=== PATIENT | female | born 1960 | race Caucasian/White ===

== ENCOUNTER → 2016-05-17 | Outpatient (REF) | payer BC | LOC: M SFHCPLAZ 08:30 | PROVIDERS: ATTEND Family Medicine | DX: Z13.220 Encounter for screening for lipoid disorders (principal) ==

== ENCOUNTER → 2016-05-30 | Outpatient (REF) | payer BC ==
[2016-05-30 18:46] LABS: MEAN CORPUSCULAR HEMOGLOBIN 30.5 pg (27.0-33.0); MEAN CORPUSCULAR HGB CONC 33.3 g/dl (32.0-36.5); MEAN CORPUSCULAR VOLUME 91.7 fl (80.0-96.0); RED CELL DISTRIBUTION WIDTH 13.4 % (11.5-14.5); WHITE BLOOD COUNT 5.9 K/mm3 (4.0-10.0)
[2016-05-30 19:20] LABS: ALBUMIN 4.2 GM/DL (3.2-5.2); ALBUMIN/GLOBULIN RATIO 1.14 (1.00-1.93); ALKALINE PHOSPHATASE 164 U/L (45-117); ALT/SGPT 21 U/L (12-78); AMYLASE 53 U/L (25-115); ANION GAP 9 MEQ/L (8-16); AST/SGOT 19 U/L (15-37); BILIRUBIN,TOTAL 0.3 MG/DL (0.2-1.0); BLOOD UREA NITROGEN 9 MG/DL (7-18); CALCIUM LEVEL 9.1 MG/DL (8.5-10.1); CARBON DIOXIDE LEVEL 29 MEQ/L (21-32); CHLORIDE LEVEL 105 MEQ/L (98-107); CREATININE FOR GFR 0.61 MG/DL (0.55-1.02); GLOMERULAR FILTRATION RATE > 60.0 (>51); GLUCOSE, FASTING 75 MG/DL (70-105); POTASSIUM SERUM 4.1 MEQ/L (3.5-5.1); SODIUM LEVEL 143 MEQ/L (136-145); TOTAL PROTEIN 7.9 GM/DL (6.4-8.2)
== END ==
LOC: M SFHCPLAZ 15:07
PROVIDERS: ATTEND Family Medicine
DX: R10.32 Left lower quadrant pain (principal); K92.1 Melena; R63.4 Abnormal weight loss

== ENCOUNTER → 2016-05-31 | Outpatient (CLI) | payer BC ==
[~2016-05-31] MED LIST: GASTROGRAFIN SOLUTION 30ML (Q9963) As Ordered ONE; ISOVUE-370 76% 100ML VIAL (Q9967) As Ordered ONE
--- NOTE | 2016-06-01 03:49 | REP ---
Clinical: Right lower quadrant pain. Technique: Axial contrast enhanced images from the lung bases to the pubic symphysis using oral and 100 ml Isovue 370 intravenous contrast material with precontrast images of the abdomen as well as coronal and sagittal re-formations. Comparison: 12/10/2013. Findings: Lung bases clear. Visualized heart and pericardium are normal. Liver, spleen, pancreas, gallbladder, bilateral adrenal glands and kidneys are normal. The enteric system demonstrates moderate fecal stasis without evidence for obstruction or acute inflammatory process. Pelvis demonstrates normal bladder and age-appropriate uterus/adnexa. No pelvic fluid or ascites. No intraperitoneal or retroperitoneal adenopathy. Abdominal aorta and vasculature appears normal. No free air. Musculoskeletal structures are intact. Impression: Moderate fecal stasis. Otherwise, normal contrast enhanced CT of the abdomen and pelvis. No acute intra-abdominal or pelvic pathology appreciated. Signed by Quan Valera MD 06/01/2016 03:39 A
== END ==
LOC: M RAD 15:50
PROVIDERS: ATTEND Family Medicine
DX: R10.32 Left lower quadrant pain (principal)
CPT/HCPCS: 74178; Q9963; Q9967

== ENCOUNTER → 2016-06-15 | Outpatient (CLI) | payer BC ==
[2016-06-15 14:07] LABS: COMPLEMENT C3 111 MG/DL (90-180); COMPLEMENT C4 29.7 MG/DL (10-40); GLUCOSE, FASTING 81 MG/DL (70-105); URIC ACID 4.2 MG/DL (2.6-6.0)
[2016-06-15 15:53] LABS: BASO # 0.1 K/mm3 (0.0-0.2); BASO % 0.9 % (0.0-1.0); EOS # 0.1 K/mm3 (0.0-0.50); EOS % 1.9 % (0.0-3.0); LARGE UNSTAINED CELL # 0.1 K/mm3 (0.0-0.4); LARGE UNSTAINED CELL % 1.3 % (0.0-4.0); LYMPH # 1.9 K/mm3 (1.5-4.5); MEAN CORPUSCULAR HEMOGLOBIN 30.2 pg (27.0-33.0); MEAN CORPUSCULAR HGB CONC 32.3 g/dl (32.0-36.5); MEAN CORPUSCULAR VOLUME 93.3 fl (80.0-96.0); MONO # 0.4 K/mm3 (0.0-0.8); MONO % 5.6 % (0.0-5.0); NEUTROPHILS # 3.9 K/mm3 (1.8-7.7); NEUTROPHILS % 61.2 % (36.0-66.0); PLATELET COUNT, AUTOMATED 337 k/mm3 (150-450); RED CELL DISTRIBUTION WIDTH 13.9 % (11.5-14.5); WHITE BLOOD COUNT 6.4 K/mm3 (4.0-10.0)
[2016-06-15 16:17] LABS: ERYTHROCYTE SEDIMENTATION RATE 49 mm/hr (0-30)
[2016-06-20 00:06] LABS: COMPLEMENT TOTAL (CH50) > 63 U/mL (42-60); T PALLIDUM AB (FTA-AB) Non Reactive (Non Reactive)
[2016-06-21 07:15] LABS: HLA TYPING (23A-49B +8C LOCUS) SEE SEPARATE REPORT
== END ==
LOC: M LAB 12:54
PROVIDERS: ATTEND Ophthalmology
DX: H15.001 Unspecified scleritis, right eye (principal)

== ENCOUNTER → 2016-06-19 | Outpatient (CLI) | payer BC ==
--- NOTE | 2016-06-19 14:01 | REPMRS ---
Patient History The patient states she has not had a clinical breast exam in over a year. Patient is postmenopausal. Family history of breast cancer in sister under age 50. Benign excisional biopsy of the left breast, 1989. Digital Woman Screen Mammo: June 19, 2016 - Exam #: [id number] Bilateral CC and MLO view(s) were taken. Technologist: Cecy Cortez, Technologist Prior study comparison: April 25, 2013, digital woman screen mammo performed at [facility]. FINDINGS: The breast tissue is extremely dense which could obscure a lesion on mammography. There is no evidence of cancer on this mammogram. ASSESSMENT: BI-RADS/ACR category 2 mammogram. Benign finding(s). Given the dense breast parenchyma and family history, recommend MRI of the breasts to exclude occult lesion. Recommendation Routine screening mammogram of both breasts in 1 year (for women over age 40). This mammogram was interpreted with the aid of an FDA-approved computer-aided dectection system. Electronically Signed By: Wojciech Ocampo MD 06/19/16 1400
--- NOTE | 2016-06-21 07:58 | DEXA ---
AP SPINE L1 - L4 1.027 -1.4 0.0 LT FEMUR TOTAL 0.918 -0.7 0.4 RT FEMUR TOTAL 0.981 -0.2 0.9 TOTAL BODY TOTAL OTHER DUAL FEMUR FRAX* ASSESSMENT Risk factors: Current smoker. 10 year probability of fracture Major osteoporotic fracture 6.0 % Hip fracture 0.6 % COMMENTS: Normal bone densitometry of the right hip. There is low bone density of the spine. There is low bone density of the left hip. The density of the spine is decreased 2.9% since 04/2013. The density of the left hip has decreased 8.7% since 04/2013. The density of the right hip has decreased 1.6% since 04/2013. The decreased density of the spine does represent a significant change. The decreased density of the left hip does represent a significant change. The decreased density of the right hip does not represent a significant change. FOLLOW-UP: Recommendation for the next bone density exam: 2 years. HERNAN
== END ==
LOC: M WHC 12:46
PROVIDERS: ATTEND Family Medicine
DX: Z12.31 Encounter for screening mammogram for malignant neoplasm of breast (principal); M85.80 Other specified disorders of bone density and structure, unspecified site; Z78.0 Asymptomatic menopausal state
CPT/HCPCS: 77080; G0202

== ENCOUNTER → 2016-07-04 | Outpatient (REF) | payer BC | LOC: M SFHCPLAZ 15:34 | PROVIDERS: ATTEND Family Medicine | DX: Z12.4 Encounter for screening for malignant neoplasm of cervix (principal); R87.610 Atypical squamous cells of undetermined significance on cytologic smear of cervix (ASC-US) ==

== ENCOUNTER 2019-02-10 17:51 | Emergency (ER) | payer OTHER, BC ==
[~2019-02-10] VITALS: Ht 162.6 cm; Wt 59.3 kg
[2019-02-10 17:52] VITALS: BP 150/76
--- NOTE | 2019-02-10 18:30 | REP ---
Right wrist series: Four views. History: Right wrist injury. Findings: Four views of the right wrist demonstrate normal bones, joints and soft tissues. No fracture or subluxation is seen. Impression: Negative right wrist radiographs. Electronically Signed by Taye Gan MD 02/10/2019 06:22 P
[2019-02-10] MEDS ORDERED: IBUPROFEN 600 MG TAB PO ONE (19:15)
[2019-02-10] MEDS ORDERED: ACETAMINOPHEN 325 MG TAB PO ONE (19:15)
== END 2019-02-10 20:05 | disposition home or self-care (01) ==
LOC: M ED 17:51
DX: S63.501A Unspecified sprain of right wrist, initial encounter (principal); W22.8XXA Striking against or struck by other objects, initial encounter; Y92.89 Other specified places as the place of occurrence of the external cause

== ENCOUNTER 2022-05-23 11:21 | Inpatient (IN) | payer BC, MEDICAID, OTHER, SELFPAY ==
[~2022-05-23] VITALS: Ht 162.6 cm; Wt 55.0 kg
[2022-05-23 12:28] LABS: BASO % 0.4 % (0.0-1.0); HEMOGLOBIN 13.8 g/dl (12.0-15.5); LYMPH # 0.7 10^3/uL (1.5-5.0); MEAN CORPUSCULAR HEMOGLOBIN 31.9 pg (27.0-33.0); MEAN CORPUSCULAR HGB CONC 33.7 g/dl (32.0-36.5); MEAN CORPUSCULAR VOLUME 94.9 fl (80.0-96.0); MONO # 0.3 10^3/uL (0.0-0.8); MONO % 11.5 % (2.0-8.0); NEUTROPHILS # 1.6 10^3/uL (1.5-8.5); NEUTROPHILS % 60.7 % (36.0-66.0); PLATELET COUNT, AUTOMATED 150 10^3/uL (150-450); RED BLOOD COUNT 4.32 10^6/uL (4.00-5.40); WHITE BLOOD COUNT 2.7 10^3/uL (4.0-10.0)
[2022-05-23 12:45] LABS: BLOOD UREA NITROGEN 14 MG/DL (9-23); CALCIUM LEVEL 7.9 MG/DL (8.3-10.6); CARBON DIOXIDE LEVEL 24 MMOL/L (20-31); CHLORIDE LEVEL 100 MMOL/L (98-107); CREATININE FOR GFR 0.67 MG/DL (0.55-1.30); GLOMERULAR FILTRATION RATE > 60.0 (>45); GLUCOSE, FASTING 100 MG/DL (74-106); POTASSIUM SERUM 4.4 MMOL/L (3.5-5.1); SODIUM LEVEL 135 MMOL/L (136-145)
[2022-05-23] MEDS ORDERED: IPRATROPIUM 0.5MG/ALBUTEROL 2.5MG INH SOL UD 3ML (DUONEB) NEB ONE (17:00)
[2022-05-23] MEDS ORDERED: LR IV SCH (18:05)
[2022-05-23] MEDS ORDERED: D5 IV SCH (18:05)
[2022-05-23] MEDS ORDERED: LIDOCAINE 5% (LIDODERM) PATCH TD ONE (18:10)
[2022-05-23] MEDS ORDERED: IBUPROFEN 400MG TAB PO PRN (18:10)
[2022-05-23] MEDS: ACETAMINOPHEN 325 MG TAB PO PRN (18:37)
[2022-05-23] MEDS ORDERED: [UNRECOGNIZED DRUG - CODE] PO (18:43)
[2022-05-23] MEDS ORDERED: EXCETAB32 PO (18:43)
[2022-05-23] MEDS ORDERED: HOME MED LIST COMPLETE! XX SCH (18:45)
[2022-05-23 19:57] LABS: ALBUMIN 3.6 G/DL (3.2-5.2); ALKALINE PHOSPHATASE 99 U/L (46-116); ALT/SGPT 23 U/L (7.0-40); AST/SGOT 42 U/L (<34); BILIRUBIN,DIRECT < 0.1 MG/DL (<0.4); BILIRUBIN,TOTAL 0.3 MG/DL (0.3-1.2); TOTAL PROTEIN 7.1 G/DL (5.7-8.2)
[2022-05-23] MEDS: IPRATROPIUM 0.5MG/ALBUTEROL 2.5MG INH SOL UD 3ML (DUONEB) NEB SCH ×2 (20:00→23:13)
[2022-05-23] MEDS: OSELTAMIVIR PHOSPHATE 75 MG CAP (TAMIFLU) PO SCH (21:42)
[2022-05-23] MEDS: IBUPROFEN 800 MG TAB PO PRN (21:42)
[2022-05-24] MEDS: IPRATROPIUM 0.5MG/ALBUTEROL 2.5MG INH SOL UD 3ML (DUONEB) NEB SCH ×6 (03:18→23:21)
[2022-05-24 06:07] LABS: HEMATOCRIT 41.4 % (36.0-47.0); HEMOGLOBIN 13.6 g/dl (12.0-15.5); MEAN CORPUSCULAR HEMOGLOBIN 31.7 pg (27.0-33.0); MEAN CORPUSCULAR HGB CONC 32.9 g/dl (32.0-36.5); MEAN CORPUSCULAR VOLUME 96.5 fl (80.0-96.0); PLATELET COUNT, AUTOMATED 142 10^3/uL (150-450); RED BLOOD COUNT 4.29 10^6/uL (4.00-5.40); WHITE BLOOD COUNT 3.5 10^3/uL (4.0-10.0)
[2022-05-24 06:34] LABS: BLOOD UREA NITROGEN 20 MG/DL (9-23); CARBON DIOXIDE LEVEL 28 MMOL/L (20-31); CHLORIDE LEVEL 104 MMOL/L (98-107); CREATININE FOR GFR 0.83 MG/DL (0.55-1.30); GLOMERULAR FILTRATION RATE > 60.0 (>45); GLUCOSE, FASTING 103 MG/DL (74-106); POTASSIUM SERUM 3.9 MMOL/L (3.5-5.1); SODIUM LEVEL 141 MMOL/L (136-145)
[2022-05-24] MEDS: OSELTAMIVIR PHOSPHATE 75 MG CAP (TAMIFLU) PO SCH ×2 (07:30→20:30)
[2022-05-24] MEDS: ENOXAPARIN 30MG/0.3ML SYRINGE (J1650 PER 10MG) SC SCH (07:31)
[2022-05-24] MEDS: LIDOCAINE 5% (LIDODERM) PATCH TD SCH (07:31)
[2022-05-24] MEDS: IBUPROFEN 800 MG TAB PO PRN (07:37)
[2022-05-24 15:15] VITALS: BP 116/69
[2022-05-24] MEDS ORDERED: LR 1,000 ML IV ONE (15:50)
[2022-05-24] MEDS: ACETAMINOPHEN 325 MG TAB PO PRN (17:47)
[2022-05-24] MEDS: ONDANSETRON 4MG ORAL DISINTEGRATING TAB SL PRN (20:43)
[2022-05-24 22:00] VITALS: BP 117/70
[2022-05-25] MEDS: IPRATROPIUM 0.5MG/ALBUTEROL 2.5MG INH SOL UD 3ML (DUONEB) NEB SCH ×6 (04:00→23:49)
[2022-05-25] MEDS: IBUPROFEN 800 MG TAB PO PRN ×2 (05:02→12:49)
[2022-05-25] MEDS: ONDANSETRON 4MG ORAL DISINTEGRATING TAB SL PRN (05:08)
[2022-05-25 06:00] VITALS: BP 123/76
[2022-05-25 06:16] LABS: HEMATOCRIT 38.5 % (36.0-47.0); HEMOGLOBIN 12.9 g/dl (12.0-15.5); MEAN CORPUSCULAR HEMOGLOBIN 31.9 pg (27.0-33.0); MEAN CORPUSCULAR HGB CONC 33.5 g/dl (32.0-36.5); MEAN CORPUSCULAR VOLUME 95.3 fl (80.0-96.0); PLATELET COUNT, AUTOMATED 142 10^3/uL (150-450); RED BLOOD COUNT 4.04 10^6/uL (4.00-5.40)
[2022-05-25 06:40] LABS: BLOOD UREA NITROGEN 10 MG/DL (9-23); CALCIUM LEVEL 8.2 MG/DL (8.3-10.6); CARBON DIOXIDE LEVEL 26 MMOL/L (20-31); CHLORIDE LEVEL 106 MMOL/L (98-107); CREATININE FOR GFR 0.58 MG/DL (0.55-1.30); GLOMERULAR FILTRATION RATE > 60.0 (>45); GLUCOSE, FASTING 107 MG/DL (74-106); POTASSIUM SERUM 4.1 MMOL/L (3.5-5.1); SODIUM LEVEL 142 MMOL/L (136-145)
[2022-05-25] MEDS: OSELTAMIVIR PHOSPHATE 75 MG CAP (TAMIFLU) PO SCH ×2 (10:22→20:15)
[2022-05-25] MEDS: ENOXAPARIN 30MG/0.3ML SYRINGE (J1650 PER 10MG) SC SCH (10:23)
[2022-05-25] MEDS: LIDOCAINE 5% (LIDODERM) PATCH TD SCH (10:23)
[2022-05-25] MEDS ORDERED: oxyCODONE 5MG TAB PO ONE ×2 (13:00)
[2022-05-25] MEDS ORDERED: SUMAtriptan SUCCINATE 25 MG TAB PO PRN (13:05)
[2022-05-25 14:00] VITALS: BP 104/57
[2022-05-25] MEDS ORDERED: MORPHINE 2 MG/ML 1ML VIAL IV ONE (14:10)
[2022-05-25] MEDS: D5W/LR 1,000 ML IV SCH (15:16)
[2022-05-25 22:00] VITALS: BP 117/74
[2022-05-26] MEDS: ONDANSETRON 4MG 2ML VIAL IV PRN ×2 (01:22→10:27)
[2022-05-26] MEDS: D5W/LR 1,000 ML IV SCH ×2 (01:25→15:20)
[2022-05-26] MEDS: IPRATROPIUM 0.5MG/ALBUTEROL 2.5MG INH SOL UD 3ML (DUONEB) NEB SCH ×4 (03:11→15:09)
[2022-05-26 05:39] LABS: HEMATOCRIT 37.7 % (36.0-47.0); HEMOGLOBIN 12.5 g/dl (12.0-15.5); MEAN CORPUSCULAR HEMOGLOBIN 31.9 pg (27.0-33.0); MEAN CORPUSCULAR HGB CONC 33.2 g/dl (32.0-36.5); MEAN CORPUSCULAR VOLUME 96.2 fl (80.0-96.0); PLATELET COUNT, AUTOMATED 163 10^3/uL (150-450); RED BLOOD COUNT 3.92 10^6/uL (4.00-5.40); WHITE BLOOD COUNT 4.2 10^3/uL (4.0-10.0)
[2022-05-26 05:59] LABS: BLOOD UREA NITROGEN 9 MG/DL (9-23); CALCIUM LEVEL 8.2 MG/DL (8.3-10.6); CARBON DIOXIDE LEVEL 29 MMOL/L (20-31); CHLORIDE LEVEL 107 MMOL/L (98-107); CREATININE FOR GFR 0.58 MG/DL (0.55-1.30); GLOMERULAR FILTRATION RATE > 60.0 (>45); GLUCOSE, FASTING 122 MG/DL (74-106); POTASSIUM SERUM 4.2 MMOL/L (3.5-5.1); SODIUM LEVEL 143 MMOL/L (136-145)
[2022-05-26 06:00] VITALS: BP 118/74
[2022-05-26] MEDS: OSELTAMIVIR PHOSPHATE 75 MG CAP (TAMIFLU) PO SCH (10:18)
[2022-05-26] MEDS: LIDOCAINE 5% (LIDODERM) PATCH TD SCH (10:18)
[2022-05-26] MEDS: ENOXAPARIN 30MG/0.3ML SYRINGE (J1650 PER 10MG) SC SCH (10:19)
[2022-05-26] MEDS ORDERED: ACET32TAB PO (10:59)
[2022-05-26] MEDS ORDERED: IBUP-1114 PO (10:59)
[2022-05-26] MEDS ORDERED: VENTAER INH (10:59)
[2022-05-26] MEDS ORDERED: OSEL75CA2 PO (10:59)
[2022-05-26] MEDS ORDERED: ONDA4TAB6 PO (10:59)
[2022-05-26] MEDS ORDERED: LIDO5TD TD (10:59)
[2022-05-26 14:00] VITALS: BP 135/85
== END 2022-05-26 17:24 | disposition home or self-care (01) | DRG 113 ==
LOC: M ED 11:21 → M ED INP 17:34 → ENRESERV 05-24 12:35 → M MSPAV 05-24 15:17 → OBSVTOIN 05-25 14:35
PROVIDERS: ADMIT Student in an Organized Health Care Education/Training Program; ATTEND Student in an Organized Health Care Education/Training Program
DX: J10.01 Influenza due to other identified influenza virus with the same other identified influenza virus pneumonia (principal); J96.01 Acute respiratory failure with hypoxia; R55 Syncope and collapse; M80.88XA Other osteoporosis with current pathological fracture, vertebra(e), initial encounter for fracture; Z79.899 Other long term (current) drug therapy; Z88.6 Allergy status to analgesic agent

== ENCOUNTER → 2022-06-13 | Outpatient (CLI) | payer MEDICAID ==
[~2022-06-13] MED LIST changes: +ACET32TAB PO; +EXCETAB32 PO; -GASTROGRAFIN SOLUTION 30ML (Q9963) As Ordered ONE; +IBUP-1114 PO; -ISOVUE-370 76% 100ML VIAL (Q9967) As Ordered ONE; +LIDO5TD TD; +ONDA4TAB6 PO; +OSEL75CA2 PO; +VENTAER INH; +[UNRECOGNIZED DRUG - CODE] PO
== END ==
LOC: M WHC 12:53
PROVIDERS: ATTEND Nurse Practitioner Family
DX: Z12.31 Encounter for screening mammogram for malignant neoplasm of breast (principal); Z13.828 Encounter for screening for other musculoskeletal disorder

== ENCOUNTER → 2022-06-28 | Outpatient (REF) | payer MEDICAID ==
[2022-06-28 18:11] LABS: ALBUMIN 3.8 G/DL (3.2-5.2); ALKALINE PHOSPHATASE 103 U/L (46-116); ALT/SGPT 31 U/L (7.0-40); AST/SGOT 24 U/L (<34); BILIRUBIN,TOTAL 0.5 MG/DL (0.3-1.2); BLOOD UREA NITROGEN 26 MG/DL (9-23); CALCIUM LEVEL 9.3 MG/DL (8.3-10.6); CARBON DIOXIDE LEVEL 29 MMOL/L (20-31); CHLORIDE LEVEL 105 MMOL/L (98-107); CHOLESTEROL LEVEL 231 MG/DL (<200); CHOLESTEROL RISK RATIO 3.26 (<5); CREATININE FOR GFR 0.65 MG/DL (0.55-1.30); GLOMERULAR FILTRATION RATE > 60.0 (>45); GLUCOSE, FASTING 86 MG/DL (74-106); HDL CHOLESTEROL 70.7 MG/DL (>40); LDL CHOLESTEROL 148.3 MG/DL (<100); NON-HDL-C 160 MG/DL; POTASSIUM SERUM 4.4 MMOL/L (3.5-5.1); SODIUM LEVEL 140 MMOL/L (136-145); THYROID STIMULATING HORMONE 1.647 uIU/ML (0.55-4.78); TOTAL 25(OH) VITAMIN D 24.8 NG/ML (20.0-100.0); TOTAL PROTEIN 7.4 G/DL (5.7-8.2); TRIGLYCERIDES LEVEL 60 MG/DL (<150)
== END ==
LOC: M LAB REF 17:09
PROVIDERS: ATTEND Nurse Practitioner Family
DX: Z13.220 Encounter for screening for lipoid disorders (principal); M85.88 Other specified disorders of bone density and structure, other site

== ENCOUNTER → 2022-07-06 | Outpatient (CLI) | payer MEDICAID, OTHER | LOC: M SOG 08:32 | PROVIDERS: ATTEND Orthopaedic Surgery | DX: M54.6 Pain in thoracic spine (principal) ==

== ENCOUNTER → 2022-08-14 | Outpatient (CLI) | payer MEDICAID, OTHER ==
[~2022-08-14] MED LIST changes: +VITA200032
== END ==
LOC: M WHC 14:31
PROVIDERS: ATTEND Nurse Practitioner Family
DX: N63.31 Unspecified lump in axillary tail of the right breast (principal); Z98.890 Other specified postprocedural states

== ENCOUNTER 2022-08-22 11:56 | Day surgery (SDC) | payer OTHER ==
[~2022-08-22] VITALS: Ht 162.6 cm; Wt 52.6 kg
[2022-08-22] MEDS ORDERED: LIDOCAINE 2% 100MG/5ML SDV (FOR ANES.) As Ordered ONE (13:39)
[2022-08-22] MEDS ORDERED: propofoL 200 MG/20 ML VIAL As Ordered ONE (13:39)
[2022-08-22 14:23] VITALS: BP 126/74
== END 2022-08-22 14:43 | disposition home or self-care (01) ==
LOC: M OPP 11:56
PROVIDERS: ATTEND Surgery
DX: Z12.11 Encounter for screening for malignant neoplasm of colon (principal)

== ENCOUNTER → 2022-09-13 | Outpatient (CLI) | payer OTHER | LOC: M RAD 14:39 | PROVIDERS: ATTEND Nurse Practitioner Family | DX: Z12.2 Encounter for screening for malignant neoplasm of respiratory organs (principal) ==

== ENCOUNTER 2023-03-20 09:05 | Emergency (ER) | payer MEDICARE, OTHER, MEDICAID ==
[~2023-03-20] VITALS: Ht 162.6 cm; Wt 53.6 kg
[2023-03-20] MEDS ORDERED: LEVO50TA5 PO (09:17)
[2023-03-20] MEDS ORDERED: VITMTA PO (09:17)
[2023-03-20] MEDS ORDERED: IBUP200C25 PO (09:17)
[2023-03-20] MEDS ORDERED: ACET-716 PO (09:29)
[2023-03-20] MEDS ORDERED: EXCETAB32 PO (09:29)
[2023-03-20] MEDS ORDERED: LIDOCAINE 5% (LIDODERM) PATCH TD ONE (11:35)
[2023-03-20] MEDS ORDERED: diazePAM 10MG/2ML SYRINGE IV ONE ×2 (11:35→12:50)
[2023-03-20] MEDS ORDERED: KETOROLAC 30 MG/ML 1ML VIAL IV ONE (11:35)
[2023-03-20] MEDS ORDERED: methylPREDNISolone 125MG 2ML VIAL IV ONE (11:35)
[2023-03-20 12:01] LABS: BASO # 0.1 10^3/uL (0.0-0.2); BASO % 1.1 % (0.0-1.0); EOS # 0.1 10^3/uL (0.0-0.5); EOS % 1.1 % (0.0-3.0); HEMATOCRIT 39.5 % (36.0-47.0); HEMOGLOBIN 13.2 g/dl (12.0-15.5); LYMPH # 0.8 10^3/uL (1.5-5.0); LYMPH % 17.5 % (24.0-44.0); MEAN CORPUSCULAR HEMOGLOBIN 31.7 pg (27.0-33.0); MEAN CORPUSCULAR HGB CONC 33.4 g/dl (32.0-36.5); MEAN CORPUSCULAR VOLUME 94.7 fl (80.0-96.0); MONO # 0.4 10^3/uL (0.0-0.8); NEUTROPHILS # 3.4 10^3/uL (1.5-8.5); NEUTROPHILS % 71.9 % (36.0-66.0); PLATELET COUNT, AUTOMATED 226 10^3/uL (150-450); RED BLOOD COUNT 4.17 10^6/uL (4.00-5.40); WHITE BLOOD COUNT 4.7 10^3/uL (4.0-10.0)
[2023-03-20 12:19] LABS: BLOOD UREA NITROGEN 25 MG/DL (9-23); CALCIUM LEVEL 8.9 MG/DL (8.3-10.6); CARBON DIOXIDE LEVEL 27 MMOL/L (20-31); CHLORIDE LEVEL 105 MMOL/L (98-107); CREATININE FOR GFR 0.66 MG/DL (0.55-1.30); GLOMERULAR FILTRATION RATE > 60.0 (>45); GLUCOSE, FASTING 93 MG/DL (74-106); POTASSIUM SERUM 4.3 MMOL/L (3.5-5.1); SODIUM LEVEL 141 MMOL/L (136-145)
[2023-03-20 13:55] VITALS: BP 120/63; TEMP 97.7; O2SAT 97
[2023-03-20] MEDS ORDERED: MEDR4PAK PO (14:16)
[2023-03-20] MEDS ORDERED: METH-1165 PO (14:16)
[2023-03-20] MEDS ORDERED: TRAM50TA2 PO (14:16)
[2023-03-20] MEDS ORDERED: ASPE4PAD TOP (14:16)
== END 2023-03-20 14:32 | disposition home or self-care (01) ==
LOC: M ED 09:05 → EDBD 09:05 → M ED 14:32
DX: M48.07 Spinal stenosis, lumbosacral region (principal); M51.27 Other intervertebral disc displacement, lumbosacral region; R51.9 Headache, unspecified; Z79.891 Long term (current) use of opiate analgesic; Z79.82 Long term (current) use of aspirin; Z79.899 Other long term (current) drug therapy
CPT/HCPCS: 72131; 80048; 81001; 85025; 96374; 96375; 99284; J1885; J2930; J3360

== ENCOUNTER → 2023-09-01 | Outpatient (CLI) | payer MEDICARE, OTHER ==
[~2023-09-01] MED LIST changes: +ACET-716 PO; +ASPE4PAD TOP; +IBUP200C25 PO; +LEVO50TA5 PO; +MEDR4PAK PO; +METH-1165 PO; +TRAM50TA2 PO; +VITMTA PO
== END ==
LOC: M RAD 08:46
PROVIDERS: ATTEND Orthopaedic Surgery
DX: M48.062 Spinal stenosis, lumbar region with neurogenic claudication (principal); M51.16 Intervertebral disc disorders with radiculopathy, lumbar region

== ENCOUNTER → 2023-11-21 | Outpatient (REF) | payer MEDICARE, OTHER ==
[~2023-11-21] MED LIST changes: +ONDA-282 PO; -ONDA4TAB6 PO
[2023-11-21 13:46] LABS: HEMATOCRIT 40.4 % (36.0-47.0); HEMOGLOBIN 13.8 g/dl (12.0-15.5); MEAN CORPUSCULAR HEMOGLOBIN 33.1 pg (27.0-33.0); MEAN CORPUSCULAR HGB CONC 34.2 g/dl (32.0-36.5); MEAN CORPUSCULAR VOLUME 96.9 fl (80.0-96.0); PLATELET COUNT, AUTOMATED 213 10^3/uL (150-450); RED BLOOD COUNT 4.17 10^6/uL (4.00-5.40); WHITE BLOOD COUNT 3.9 10^3/uL (4.0-10.0)
[2023-11-21 13:57] LABS: BLOOD UREA NITROGEN 25 MG/DL (9-23); CALCIUM LEVEL 9.2 MG/DL (8.3-10.6); CARBON DIOXIDE LEVEL 29 MMOL/L (20-31); CHLORIDE LEVEL 107 MMOL/L (98-107); CHOLESTEROL LEVEL 304 MG/DL (<200); CHOLESTEROL RISK RATIO 3.92 (<5); CREATININE FOR GFR 0.67 MG/DL (0.55-1.30); GLOMERULAR FILTRATION RATE > 60.0 (>45); GLUCOSE, FASTING 93 MG/DL (74-106); HDL CHOLESTEROL 77.4 MG/DL (>40); LDL CHOLESTEROL 215.4 MG/DL (<100); NON-HDL-C 226.6 MG/DL; POTASSIUM SERUM 4.5 MMOL/L (3.5-5.1); SODIUM LEVEL 141 MMOL/L (136-145); TRIGLYCERIDES LEVEL 56 MG/DL (<150)
[2023-11-21 13:58] LABS: THYROID STIMULATING HORMONE 3.935 uIU/ML (0.55-4.78)
== END ==
LOC: M LAB REF 12:44
PROVIDERS: ATTEND Nurse Practitioner Family
DX: M85.80 Other specified disorders of bone density and structure, unspecified site (principal); E78.00 Pure hypercholesterolemia, unspecified; R53.83 Other fatigue

== ENCOUNTER → 2023-11-28 | Outpatient (CLI) | payer MEDICARE, OTHER | LOC: M WHC 08:40 | PROVIDERS: ATTEND Nurse Practitioner Family | DX: Z12.31 Encounter for screening mammogram for malignant neoplasm of breast (principal) ==

== ENCOUNTER → 2024-06-16 | Outpatient (CLI) | payer MEDICARE | LOC: M RAD 13:07 | PROVIDERS: ATTEND Nurse Practitioner Family | DX: Z12.2 Encounter for screening for malignant neoplasm of respiratory organs (principal); F17.211 Nicotine dependence, cigarettes, in remission; R91.1 Solitary pulmonary nodule; I70.0 Atherosclerosis of aorta; I25.10 Atherosclerotic heart disease of native coronary artery without angina pectoris ==